=== PATIENT | female | born 1985 | race Two or more races ===

== ENCOUNTER 2024-04-04 07:58 | Emergency (ER) | payer MEDICAID, OTHER ==
[~2024-04-04] VITALS: Ht 165.1 cm; Wt 103.4 kg
[2024-04-04 08:30] VITALS: BP 126/65; PULSE 79; RESP 16; TEMP 98; O2SAT 98
[2024-04-04] MEDS ORDERED: METH-1182 PO (09:20)
[2024-04-04] MEDS ORDERED: IBUP-1456 PO (09:20)
[2024-04-04] MEDS: ACETAMINOPHEN 500 MG TAB PO ONE (09:23)
== END 2024-04-04 09:38 | disposition home or self-care (01) ==
LOC: ER 07:58
DX: S16.1XXA Strain of muscle, fascia and tendon at neck level, initial encounter (principal); S39.012A Strain of muscle, fascia and tendon of lower back, initial encounter; S40.021A Contusion of right upper arm, initial encounter; V43.52XA Car driver injured in collision with other type car in traffic accident, initial encounter; Y93.89 Activity, other specified; Y92.488 Other paved roadways as the place of occurrence of the external cause; Y99.8 Other external cause status
CPT/HCPCS: 72040